=== PATIENT | male | born 1990 | race Caucasian/White ===

== ENCOUNTER 2018-06-01 12:41 | Emergency (ER) | payer SELFPAY ==
[2018-06-01 12:42] VITALS: BP 147/85; PULSE 81; RESP 17; TEMP 36.7; O2SAT 100; BMI 24.4
--- NOTE | 2018-06-01 12:49 | ED.MEDCLEAR ---
HPI - Medical Clearance <MARTIN Joseph - Last Filed: 06/01/18 22:21> General Chief complaint: Medical Clearance Stated complaint: TRYING TO DETOX,ALSO USING METH Time Seen by Provider: 06/01/18 12:44 Source: patient Mode of arrival: ambulatory Limitations: no limitations History of Present Illness HPI Narrative: 28-year-old male with history of chronic IV substance abuse with heroin and meth. He is a daily smoker. He states that he has last use of heroin was earlier today. He states his last use of meth was last night. He also states that he took a blue pill which she does not know what it was. He denies any suicidal or homicidal ideation. He desires to have detoxification treatment. He states he may have a bed up at [facility] but will not find out until later tonight. He denies any alcohol use. Previous Rx's Medication Instructions Recorded clonidine HCl 0.1 mg PO TID #12 tab 06/01/18 ondansetron [Zofran ODT] 4 mg PO Q8-12H PRN #10 tab 06/01/18 Allergies Allergy/AdvReac Type Severity Reaction Status Date / Time No Known Drug Allergies Allergy Verified 06/01/18 12:45 Review of Systems <MARTIN Joseph - Last Filed: 06/01/18 22:21> Review of Systems Request inpatient detox services Constitutional Denies chills, Denies fever(s), Denies lethargy and Denies weakness Eyes Denies change in vision, Denies eye discharge, Denies irritation and Denies loss of vision ENT Ears, Nose, Mouth, and Throat: Denies change in voice, Denies neck pain and Denies sore throat Cardiovascular Denies chest pain, Denies irregular heart rhythm, Denies lightheadedness, Denies palpitations, Denies dyspnea, Denies dyspnea on exertion and Denies orthopnea Respiratory Denies cough, Denies dyspnea, Denies dyspnea on exertion and Denies wheezing Gastrointestinal Gastrointestinal: Denies abdominal pain, Denies change in bowel habits, Denies diarrhea, Denies nausea and Denies vomiting Genitourinary Denies hematuria, Denies flank pain, Denies urinary incontinence and Denies urinary urgency Musculoskeletal Denies neck pain Integumentary/Breasts Denies pruritus, Denies erythema, Denies rash and Denies wounds Neurologic Denies confusion, Denies loss of vision and Denies weakness Psychiatric Denies anxiety, Denies confusion, Denies depression, Denies homicidal ideation and Denies suicidal ideation Endocrine Denies palpitations Hematologic/Lymphatic Denies easy bruising Allergic/Immunologic Denies wheezing Exam <MARTIN Joseph - Last Filed: 06/01/18 22:21> Initial Vital Signs Initial Vital Signs: Vital Signs Temperature 98.1 F 06/01/18 12:42 Pulse Rate 81 06/01/18 12:42 Respiratory Rate 17 06/01/18 12:42 Blood Pressure 147/85 H 06/01/18 12:42 Pulse Oximetry 100 06/01/18 12:42 Const General: cooperative and well developed Nutritional Appearance: well nourished Orientation: alert, awake, oriented x3 and not confused HENMT Mouth: oral mucosae normal and moist mucous membranes Eyes Conjunctivae: conjunctivae normal Sclera: sclerae normal Pupils: PERRL EOM: EOM intact bilaterally Resp Effort & Inspection: normal respiratory effort, able to speak in complete sentences, no respiratory distress and no use of accessory muscles Auscultation: clear to auscultation bilaterally, no rales, no rhonchi and no wheezes Cardio Rate: regular rate Rhythm: regular rhythm Heart Sounds: no click, no gallops, no murmurs and no rubs Pulses: normal peripheral pulses Skin General: no rashes or lesions noted, No jaundice and No petechiae Neuro General: alert, oriented x3, gait normal and no focal motor deficits Speech: speech normal Psych Appearance: grossly normal <Sherry Clemons DO - Last Filed: 06/07/18 20:02> Initial Vital Signs Initial Vital Signs: Vital Signs Temperature 98.1 F 06/01/18 12:42 Pulse Rate 81 06/01/18 12:42 Respiratory Rate 17 06/01/18 12:42 Blood Pressure 147/85 H 06/01/18 12:42 Pulse Oximetry 100 06/01/18 12:42 MDM - Medical Clearance <MARTIN Joseph - Last Filed: 06/01/18 22:21> MDM Narrative Medical decision making narrative: [facility] and they do not have a male bed available today. Discussed options with patient she states he will wait for billing him to contact him to find out if they have a bed available this evening and then will seek medical clearance. He is prescribed clonidine to help with withdrawal symptoms along with Zofran for nausea. Follow up with primary care provider. Return emergency room for worsening symptoms. Discharge Plan Departure Patient Disposition: Home Clinical Impression: Polysubstance abuse Discharge Date/Time: 06/01/18 14:04 Interventions: ED Discharge Assessment Last Done: 06/01/18 14:02 Instructions: Chemical Dependency (Narcotic) (Alternative Therapy) Activity Restrictions/Additional Instructions: To help with withdrawal syndrome you are prescribed clonidine and Zofran for nausea use as directed. Keep in touch with detox services and if they have a bed available this evening the then you may go to emergency room for medical clearance. [facility] does not have a bed available at this time. If any worsening symptoms return to the emergency room. You may also keep touch with [facility] recheck if they have beds available in the next couple of days. Prescriptions: New clonidine HCl 0.1 mg tablet 0.1 mg PO TID Qty: 12 RF: 0 ondansetron [Zofran ODT] 4 mg tablet,disintegrating 4 mg PO Q8-12H PRN (Reason: nausea and vomiting) Qty: 10 RF: 0 Referrals: [facility] [Outside] <Sherry Clemons DO - Last Filed: 06/07/18 20:02> Cosign ED Attending Brock Attestation: I was immediately available in the department for consultation. Documentation has been reviewed. I agree with assessment and plan.
[2018-06-01 14:02] VITALS: BP 142/88; PULSE 72; RESP 16; TEMP 37.5; O2SAT 100
== END 2018-06-01 14:04 | disposition home or self-care (01) ==
PROVIDERS: Emergency Provider Nurse Practitioner Family
DX: F19.10 Other psychoactive substance abuse, uncomplicated (principal)
CPT/HCPCS: 99282

== ENCOUNTER → 2020-08-28 09:48 | Outpatient (ROUT) | payer OTHER, SELFPAY ==
[2020-08-28 10:32] LABS: Influenza A - CEPHEID Flu A NEGATIVE (NEGATIVE); Influenza B - CEPHEID Flu B NEGATIVE (NEGATIVE)
[2020-08-28 10:55] LABS: COVID19 -Nasal RAPID Negative (Negative)
== END ==
PROVIDERS: Visit Provider Family Medicine
DX: R50.9 Fever, unspecified (principal); R52 Pain, unspecified; R09.81 Nasal congestion
CPT/HCPCS: 87502; 87635